=== PATIENT | male | born 2000 | race Two or more races ===

== ENCOUNTER 2022-07-11 10:36 | Emergency (ER) | payer MEDICAID, OTHER ==
[~2022-07-11] VITALS: Ht 175.3 cm; Wt 79.0 kg
[2022-07-11 12:03] VITALS: BP 135/84
[2022-07-11] MEDS ORDERED: IBUP800T27 PO (13:23)
== END 2022-07-11 13:46 | disposition home or self-care (01) ==
LOC: ER 10:36
DX: S29.011A Strain of muscle and tendon of front wall of thorax, initial encounter (principal); Z79.1 Long term (current) use of non-steroidal anti-inflammatories (NSAID); V49.9XXA Car occupant (driver) (passenger) injured in unspecified traffic accident, initial encounter; Y93.89 Activity, other specified; Y92.410 Unspecified street and highway as the place of occurrence of the external cause; Y99.8 Other external cause status
CPT/HCPCS: 71046